=== PATIENT | male | born 1960 | race Caucasian/White ===

== ENCOUNTER 2017-08-10 07:33 | Emergency (ER) | payer BC ==
[2017-08-10 07:54] VITALS: BP 138/78
[2017-08-10] MEDS ORDERED: Fluorescein Sodium TOPICAL* 1 MG TEST OPHTHALMIC ONE (08:19)
[2017-08-10] MEDS ORDERED: Tetracaine 0.5% OPTH.SOL 4 ML* 1 DROP BTL RIGHT EYE ONE (08:27)
[2017-08-10] MEDS ORDERED: Tetracaine 0.5% OPTH.SOL 4 ML* 1 DROP BTL RIGHT EYE SCH (08:30)
--- NOTE | 2017-08-10 09:27 | UC ---
Fernando Orozco Angela, scribed for Za Arambula MD on 08/10/17 at 0818 . Eye Complaint HPI - HPI Summary HPI Summary: This pt is a 57 y/o male presenting to [facility] c/o right eye pain x3 days. Pt reports he was cutting brush at home without eye protection when he felt a foreign body sensation 3 days ago at 1900 that night. Cutting burdock with a tractor. He went to the ED in [place] later that night and was told he didn't have a foreign body in his eye. His eyes weren't flushed. The next day, on Monday morning, he went to [facility] 2 days ago on Monday to see an director software. He was told he had a scratch on the upper part of his eye and was given steroid drops (which he uses 4 times a day) and told his eye pain should subside. Pt notes he still has eye pain but only with movement of his eye and feels there's something scratching his eye all over again. Pt describes his eye pain as short stabbing pain. He additionally states that when his eyelids are closed (specially when sleeping) his eye pain is worse than when they are open. Pt reports watery bilateral eyes and blurry bilateral eyes. He also describes having a headache due to his eye pain and photophobia. Pt has no regular director software. Pt lives in [place] but was on his way to [place] for work so he decided to stop in today. No PMHx. Pt works in construction in [employer] - History of Current Complaint Chief Complaint: UCEye Stated Complaint: EYE ISSUE Hx Obtained From: Patient Onset/Duration: Lasting Days - 3 Timing: Days - 3 Aggravating Factor(s): Other - movement of eyes and closing eyelids Alleviating Factor(s): Eye Drops - steroid drops Associated Signs And Symptoms: Positive: Photophobia, Drainage (Clear), Vision Impairment Bilateral - blurry eyes Related History: Meds/Drops Used: - steroid drops - Allergies/Home Medications Allergies/Adverse Reactions: Allergies Allergy/AdvReac Type Severity Reaction Status Date / Time No Known Allergies Allergy Verified 08/10/17 07:54 PMH/Surg Hx/FS Hx/Imm Hx Previously Healthy: Yes Other Endocrine History: DENIES: diabetes Other Cardiovascular History: DENIES: HTN - Surgical History Surgical History: Yes Surgery Procedure, Year, and Place: R 4th finger staph infection - surgery - Family History Known Family History: Positive: Unknown - mother , uncertain cause Negative: Cardiac Disease, Hypertension, Diabetes, Other - No FHx of glaucoma. Father is still living and healthy. - Social History Occupation: Employed Full-time - construction in [employer] Alcohol Use: None Substance Use Type: None Smoking Status (MU): Never Smoked Tobacco Review of Systems Constitutional: Negative Skin: Negative Eyes: Blurred Vision, Drainage - right eye, Photophobia, Other - right eye foreign body sensation. ENT: Negative Respiratory: Negative Cardiovascular: Negative Gastrointestinal: Negative Genitourinary: Negative Motor: Negative Neurovascular: Negative Musculoskeletal: Negative Neurological: Headache Is Patient Immunocompromised?: No All Other Systems Reviewed And Are Negative: Yes Physical Exam Triage Information Reviewed: Yes Appearance: Well-Appearing, Well-Nourished, Pain Distress - has short bouts of severe pain in the right orbital area Vital Signs: Initial Vital Signs Temp 98.1 F 08/10/17 07:44 Pulse 78 08/10/17 07:44 Resp 16 08/10/17 07:44 BP 138/78 08/10/17 07:44 Pulse Ox 96 08/10/17 07:44 Eye Exam: Other - + tetracaine drop into right eye with some relief. Eyes: Positive: Conjunctiva Inflamed, Other: - CHRISTIANNE, mildly photophobic. Fluoroscein uptake in sclera in a strip about 8 mm x 3 mm in 12 o'clock position above the iris. + foreign body reaction. Neck exam: Normal Neck: Positive: Supple, Nontender Respiratory: Positive: Lungs clear, Normal breath sounds Cardiovascular: Positive: RRR, No Murmur Eye Complaint Course/Dx - Course Course Of Treatment: Pt is a 57 y/o male c/o right eye pain and foreign body sensation x3 days s/p scratch on his eye after cutting brush. Pt medications reviewed this visit. Suspected retained foreign body in right eye--referred to opthalmology. - Differential Dx/Diagnosis Differential Diagnosis/HQI/PQRI: Corneal Abrasion, Foreign Body, Penetrating Injury Provider Diagnoses: foreign body right eye. Discharge - Discharge Plan Condition: Stable Disposition: HOME Patient Education Materials: Eye Foreign Body (ED) Referrals: No Primary Care Phys,NOPCP [Primary Care Provider] - Jose F Wilson MD [Medical Doctor] - Additional Instructions: You have been referred to Dr Patrick at 11:30 this morning for evaluation. The documentation as recorded by the Fernando lackey Angela accurately reflects the service I personally performed and the decisions made by me, Za Arambula MD.
== END 2017-08-10 09:20 | disposition home or self-care (01) ==
LOC: UCEAST 07:33
DX: T15.91XA Foreign body on external eye, part unspecified, right eye, initial encounter (principal); W45.8XXA Other foreign body or object entering through skin, initial encounter; Y93.H2 Activity, gardening and landscaping; Y92.9 Unspecified place or not applicable
CPT/HCPCS: 99201; A9270-GY; G0463